=== PATIENT | male | born 1990 | race African-American/Black ===

== ENCOUNTER 2023-05-23 12:38 | Emergency (ER) | payer OTHER ==
[2023-05-23 12:57] VITALS: BP 121/73; PULSE 56; RESP 18; TEMP 97.8; BMI 27.7
[2023-05-23] MEDS ORDERED: IBUPROFEN 600 MG TABLET (FP) PO ONE ×2 (14:04→14:05)
[2023-05-23] MEDS ORDERED: ACETAMINOPHEN 500 MG TABLET (FP) PO ONE (14:04)
[2023-05-23] MEDS ORDERED: ACETAMINOPHEN 500 MG TABLET (FP) ONE (14:06)
[2023-05-23] MEDS ORDERED: PSEUDOEPHEDRINE HCL 30 MG TABLET PO ONE (14:14)
[2023-05-23] MEDS ORDERED: PSEUDOEPHEDRINE HCL 60 MG TABLET ONE (14:17)
== END 2023-05-23 14:41 | disposition home or self-care (01) ==
LOC: JERFT 12:38
DX: R51.9 Headache, unspecified (principal); R05.9 Cough, unspecified; R09.81 Nasal congestion; J01.90 Acute sinusitis, unspecified; Z20.822 Contact with and (suspected) exposure to COVID-19
CPT/HCPCS: 0241U-QW; 99283-25

== ENCOUNTER 2025-07-02 06:08 | Day surgery (SDC) | payer OTHER ==
[2025-07-02] MEDS ORDERED: LIDOCAINE 1%/EPI 1:100000 (20 ML MULTI DOSE VIAL) ONE ×2 (07:17→08:30)
[2025-07-02] MEDS ORDERED: BUPIVACAINE HCL/PF 0.25% (2.5MG/ML) 10 ML VIAL ONE (07:17)
[2025-07-02] MEDS ORDERED: MIDAZOLAM HCL 2 MG/2 ML SINGLE DOSE VIAL ONE (08:00)
[2025-07-02] MEDS ORDERED: GENTAMICIN SO4 80 MG/2 ML VIAL ONE (08:02)
[2025-07-02] MEDS ORDERED: PROPOFOL 20 ML ONE (08:06)
[2025-07-02] MEDS ORDERED: KETAMINE HCL 200 MG/20 ML VIAL ONE (08:06)
[2025-07-02] MEDS ORDERED: VANCOMYCIN 1,000 MG VIAL (RESTRICTED TO ID ONLY) ONE (08:27)
[2025-07-02] MEDS: VANCOMYCIN 1,000 MG VIAL (RESTRICTED TO ID ONLY) IVPB ONE (08:42)
[2025-07-02] MEDS: GENTAMICIN 80MG PREMIX BAG IVPB ONE (09:00)
[2025-07-02] MEDS ORDERED: BACITRACIN ZINC 15 GM TUBE TOPICAL OINTMENT ONE (09:20)
[2025-07-02] MEDS: BACITRACIN ZINC 15 GM TUBE TOPICAL OINTMENT TP ONE (09:25)
[2025-07-02 09:51] VITALS: RESP 18; TEMP 98
[2025-07-02 10:37] VITALS: BP 123/70; PULSE 61
== END 2025-07-02 10:30 | disposition home or self-care (01) ==
LOC: JASUSAT 06:08
PROVIDERS: ATTEND Neurological Surgery
PROC: 0JB10ZZ Excision of Face Subcutaneous Tissue and Fascia, Open Approach (ICD-10-PCS; 2025-07-02)
PROC: 0JX10ZB Transfer Face Subcutaneous Tissue and Fascia with Skin and Subcutaneous Tissue, Open Approach (ICD-10-PCS; principal; 2025-07-02 08:00)
DX: D17.0 Benign lipomatous neoplasm of skin and subcutaneous tissue of head, face and neck (principal)
CPT/HCPCS: 88304-TC